=== PATIENT | male | born 1955 | race Caucasian/White ===

== ENCOUNTER 2016-08-27 14:45 | Inpatient (IN) | payer OTHER ==
[~2016-08-27] VITALS: Ht 177.8 cm; Wt 110.3 kg
--- NOTE | ~2016-08-27 | ST ---
[place], [place] EXERCISE STRESS TEST REPORT NAME: ROSALINDA CRAWFORD UNIT #: [id number] ROOM: 531 DOCTOR: SHIVA TOSCANO MD BIRTHDATE: [birth year] DOS: 08/28/2016 INDICATIONS: History of coronary artery disease, precordial chest pain. PROCEDURE: The patient walked on a Luis protocol treadmill test for 3 minutes and 30 seconds at which point he stepped off the treadmill. The exercise test was terminated, and the patient was allowed to sit. He was then given 0.4 mg regadenoson intravenously followed by a saline flush. The resting electrocardiogram showed sinus rhythm with poor precordial R-wave progression and possible left ventricular hypertrophy. He did have ST segment depression in leads 1 and 2. During the infusion, he had a normal tachycardic heart rate response. His resting heart rate of 103 aubree to 113. The resting blood pressure of 144/86 aubree to 154/80. He had mild dyspnea with regadenoson but no other significant symptoms. Isotope was administered after the infusion of regadenoson. IMPRESSION: 1. Well tolerated infusion of regadenoson. 2. Radionuclide was administered. Please see the separate imaging report for further details of the patient's stress test results. SHIVA TOSCANO MD CM:STRESS:EXERCISE STRESS TEST REPORT [id number] SHIVA TOSCANO MD
--- NOTE | ~2016-08-27 | CON ---
[place], [place] REPORT OF CONSULTATION NAME: ROSALINDA CRAWFORD UNIT #: [id number] ROOM: 531 DOCTOR: SHIVA TOSCANO MD BIRTHDATE: [birth year] DOS: 08/28/2016 CARDIOLOGY CONSULTATION REASON FOR CONSULTATION: Chest pain. HISTORY OF PRESENT ILLNESS: The patient is a 61-year-old man who has a history of hypertension, hyperlipidemia, diabetes mellitus, and coronary artery disease. He tells me that he had a 3-vessel bypass at the [facility] in 2002. He tells me he also had a carotid endarterectomy that same year. As best I can tell, he has not had very close cardiac followup since then, but recently was seen by Dr. Yoon in [place]. The patient states that Dr. Yoon requested that he undergo echocardiography. The procedure was done in [place] on 08/27/2016. As the patient was driving home from the echo, he developed a left anterior chest pain. It did not radiate. It lasted about 5-10 minutes. He stated that in retrospect, he had been having intermittent chest pains for the last week. He became concerned and therefore presented to the Emergency Room at [facility]. His initial electrocardiogram showed sinus rhythm with poor precordial R-wave progression and possible left ventricular hypertrophy. He also had ST segment depression in leads 1 and 2. He was hospitalized for further assessment. Since admission, troponin levels have been measurable, but not elevated. The highest measured troponin level was 0.034. He did not have any further EKG changes. PAST HISTORY: Includes, 1. History of coronary artery disease, status post 3-vessel bypass surgery at the [facility] in 2002, the records are not currently available. 2. Carotid vascular disease, status post left carotid endarterectomy, 2002. 3. No previous history of myocardial infarction or stroke. 4. History of essential hypertension. 5. History of hyperlipidemia. 6. Type 2 diabetes mellitus with peripheral neuropathy. 7. History of right cataract resection. MEDICATIONS: Prior to admission, insulin by sliding scale q.i.d., aspirin 81 mg per day, fenofibrate 145 mg daily, gabapentin 300 mg t.i.d., glimepiride 4 mg b.i.d., lisinopril 40 mg daily, metformin 1000 mg b.i.d., metoprolol succinate 50 mg daily and pravastatin 80 mg daily. ALLERGIES: The patient has no known drug allergies. FAMILY HISTORY: Unknown. The patient was adopted. REVIEW OF SYSTEMS: The patient denies diplopia or loss of vision. He denies lightheadedness or syncope. He did have some pressure in his chest with the pain, but denied nausea or diaphoresis. He denied fevers or chills. He denied any recent weight change. He denies any change in his appetite. He has not had hemoptysis or hematemesis. He denies any recent weight loss, fevers or chills. He denies any heat or cold intolerance. He denies polyuria or polydipsia. He denies blood in his stools or bladder and denies any change in bowel or bladder [place], [place] REPORT OF CONSULTATION NAME: ROSALINDA CRAWFORD UNIT #: [id number] ROOM: 531 DOCTOR: SHIVA TOSCANO MD BIRTHDATE: [birth year] habits. He denies any skin rashes. He denies any swelling in his legs. The remainder of the review of systems is negative except as noted above. SOCIAL HISTORY: The patient smokes an occasional cigar. He does not drink alcohol or use illicit drugs. PHYSICAL EXAMINATION: GENERAL: The patient is an overweight white male who is awake, alert and oriented. VITAL SIGNS: Pulse is 100 and regular, blood pressure is 146/90. He is afebrile. He weighs 110.3 kg and has a body mass index of 34.9. HEENT: Normocephalic, atraumatic. Extraocular muscles are intact. Sclerae are clear. Pupils are equal, round and react to light. The oral mucosa is moist. Tongue is midline. NECK: Supple. He has no jugular distention or hepatojugular reflux. Carotids are full and I heard no bruits. He had no neck or supraclavicular masses. He does have a well-healed left carotid endarterectomy scar. LUNGS: Respirations are unlabored. His chest is clear to auscultation and percussion. He had no presacral edema or chest wall tenderness. HEART: Had a regular rhythm. He had a fourth heart sound, but no third heart sound or murmur. The PMI was not displaced. There was no precordial heave, lift or thrill. ABDOMEN: Soft and normally active without masses, organomegaly or bruits. EXTREMITIES: Showed no edema. Peripheral pulses were intact in the feet bilaterally. LABORATORY DATA: I reviewed his electrocardiogram. It did show sinus rhythm with poor precordial R-wave progression and probable left ventricular hypertrophy. There was mild ST segment depression in leads 1 and 2. Occasional PVCs were seen. Serial cardiac biomarkers are as noted above. There is a minimal elevation in troponin, which is measurable but not above the normal level for this hospital. Hemoglobin is 12.5, hematocrit 30.2. There are 3800 white cells and 88,000 platelets present. INR is 1.2. Sodium is 138, potassium 3.8, chloride 103, CO2 24, BUN 9, creatinine 0.65. Sugar on admission was 200 with hemoglobin A1c of 8.6. Please note, an echocardiogram was available from 12/24/2014. It showed normal left ventricular size with mild concentric left ventricular hypertrophy. There was stage 1 left ventricular diastolic relaxation abnormalities and normal left ventricular systolic function. The patient had moderate aortic stenosis with an estimated valve area of 1.4 cm2 and a mean transvalvular gradient of 14 mmHg. IMPRESSIONS: 1. Admission with chest pain. The patient does not show any signs of an acute myocardial infarction, although his measurable troponin levels are somewhat suspicious for early myocardial injury. 2. History of coronary artery disease status post reported 3-vessel bypass at the [facility] in [place] in 2002. [place], [place] REPORT OF CONSULTATION NAME: ROSALINDA CRAWFORD UNIT #: [id number] ROOM: 531 DOCTOR: SHIVA TOSCANO MD BIRTHDATE: [birth year] 3. History of carotid vascular disease, status post left carotid endarterectomy. 4. Moderate aortic stenosis. 5. History of hypertension. 6. History of hyperlipidemia. 7. History of diabetes with peripheral neuropathy, but no nephropathy present. PLAN: We will assess his coronary perfusion with an exercise myocardial perfusion study. An echocardiogram was reportedly done yesterday at the [facility] and we will request those records rather than repeating the study today. I thank the hospitalist group for asking our advice regarding his management. SHIVA TOSCANO MD CM:CONSTR:REPORT OF CONSULTATION 1029 08/29/16 0116 interface
[~2016-08-27 14:45] MED LIST: VICODIN ES 7501 TAB PO
[2016-08-27 14:52] VITALS: BP 180/91
[2016-08-27 15:29] LABS: BASO # 0.1 10*3/uL (0.0-0.1); BASO % 1.1 % (0.0-1.0); EOS # 0.1 10*3/uL (0.0-0.4); EOS % 1.5 % (1.0-4.0); HEMATOCRIT 39.8 % (42.0-52.0); LYMPH # 0.7 10*3/uL (1.3-4.4); LYMPH % 12.2 % (27.0-41.0); MEAN CELL VOLUME 87.1 fl (80.0-94.0); MEAN CORPUSCULAR HGB 28.4 pg (27.0-31.0); MEAN CORPUSCULAR HGB CONC 32.7 g/dl (33.0-37.0); MEAN PLATELET VOLUME 11.1 fl (9.6-12.3); MONO # 0.5 10*3/uL (0.1-1.0); PLATELET COUNT AUTOMATED 82 10*3/uL (130-400); RED BLOOD COUNT 4.57 10*6/uL (4.50-5.90); RED CELL DISTRI WIDTH 14.2 % (0-14.5); WHITE BLOOD COUNT 5.3 10*3/uL (4.8-10.8)
[2016-08-27 15:47] LABS: BUN 9 mg/dl (7-24); CARBON DIOXIDE 23 mmol/L (21-32); CHLORIDE 99 mmol/L (98-107); EST GLOM FILT AFRICAN AMERICAN > 60 ml/min; GLUCOSE 315 mg/dL (65-99); SODIUM 133 mmol/L (136-145); TROPONIN I 0.034 ng/ml (<0.5)
[2016-08-27 16:49] VITALS: BP 145/88
[2016-08-27] MEDS ORDERED: ASPIRIN81 M1 PO (16:52)
[2016-08-27] MEDS ORDERED: LISINOPRIL40 MG PO (16:52)
[2016-08-27] MEDS ORDERED: NEURONTIN300 MG PO (16:52)
[2016-08-27] MEDS ORDERED: AMARYL4 MG PO (16:52)
[2016-08-27] MEDS ORDERED: PRAVASTATIN SOD80 MG PO (16:52)
[2016-08-27] MEDS ORDERED: METOPROLOL SUCC50 M1 PO (16:53)
[2016-08-27] MEDS ORDERED: SIMVASTATIN40 MG PO (16:53)
[2016-08-27] MEDS ORDERED: NOVOLOG10 ML IV (16:53)
[2016-08-27] MEDS ORDERED: FENOFIBRATE145 M1 PO (16:54)
[2016-08-27 17:25] VITALS: BP 127/69
[2016-08-27 17:36] LABS: INTERNATIONAL NORM RATIO 1.1 (2.0-3.5)
[2016-08-27 18:27] LABS: TROPONIN I 0.033 ng/ml (<0.5)
[2016-08-27 18:31] VITALS: BP 147/83
[2016-08-27] MEDS ORDERED: METFORMIN1000 MG PO (18:48)
[2016-08-27 20:00] VITALS: BP 158/74
[2016-08-27 20:57] LABS: BILIRUBIN NEGATIVE (NEGATIVE); BLOOD NEGATIVE (NEGATIVE); CLARITY CLEAR (CLEAR); COLOR YELLOW (YELLOW); GLUCOSE 1+ (NEGATIVE); KETONE NEGATIVE (NEGATIVE); LEUKO ESTERASE NEGATIVE (NEGATIVE); NITRITE NEGATIVE (NEGATIVE); PROTEIN NEGATIVE (NEGATIVE)
[2016-08-27 21:06] LABS: URINE REFLEX COMMENT NO (NO)
[2016-08-28] VITALS: BP 133/77
[2016-08-28 00:46] LABS: CKMB 1.9 ng/ml (0.5-3.6); TROPONIN I 0.032 ng/ml (<0.5)
[2016-08-28 06:11] LABS: BASO % 1.1 % (0.0-1.0); EOS # 0.1 10*3/uL (0.0-0.4); EOS % 2.7 % (1.0-4.0); HEMATOCRIT 38.2 % (42.0-52.0); HEMOGLOBIN 12.5 g/dl (14.0-18.0); LYMPH # 0.7 10*3/uL (1.3-4.4); LYMPH % 18.8 % (27.0-41.0); MEAN CELL VOLUME 86.8 fl (80.0-94.0); MEAN CORPUSCULAR HGB 28.4 pg (27.0-31.0); MEAN CORPUSCULAR HGB CONC 32.7 g/dl (33.0-37.0); MEAN PLATELET VOLUME 11.5 fl (9.6-12.3); MONO # 0.5 10*3/uL (0.1-1.0); MONO % 13.5 % (3.0-9.0); NEUT # 2.4 10*3/uL (2.3-7.9); NEUT % 63.6 % (47.0-73.0); PLATELET COUNT AUTOMATED 88 10*3/uL (130-400); WHITE BLOOD COUNT 3.8 10*3/uL (4.8-10.8)
[2016-08-28 06:26] LABS: ALBUMIN 3.3 gm/dl (3.1-4.5); ALKALINE PHOSPHATASE 124 U/L (45-117); BILIRUBIN, TOTAL 1.3 mg/dl (0.2-1.0); BUN 9 mg/dl (7-24); CARBON DIOXIDE 24 mmol/L (21-32); CHLORIDE 103 mmol/L (98-107); CHOLESTEROL 147 mg/dL (<200); EST GLOM FILT AFRICAN AMERICAN > 60 ml/min; FREE T4 1.22 ng/dl (0.76-1.46); GLUCOSE 246 mg/dL (65-99); HDL CHOLESTEROL 16 mg/dl (40-60); LDL CHOLESTEROL 85 mg/dL (9-159); MAGNESIUM 1.3 mg/dL (1.5-2.1); POTASSIUM 3.8 mmol/L (3.5-5.1); SGOT/AST 24 IU/L (3-35); SGPT/ALT 17 U/L (12-78); SODIUM 138 mmol/L (136-145); TOTAL PROTEIN 7.5 gm/dL (6.4-8.2); TRIGLYCERIDES 230 mg/dl (<150); VLDL CHOLESTEROL 46 mg/dL (6-40)
[2016-08-28 06:28] LABS: HEMOGLOBIN A1c 8.6 % (4.8-5.6)
[2016-08-28 06:36] LABS: CKMB 2.2 ng/ml (0.5-3.6); TROPONIN I 0.027 ng/ml (<0.5)
[2016-08-28 07:05] LABS: FOLIC ACID 9.55 ng/mL (>5.38)
[2016-08-28 07:27] LABS: INTERNATIONAL NORM RATIO 1.2 (2.0-3.5); PROTHROMBIN TIME 12.7 SECONDS (9.0-12.4)
[2016-08-28 08:00] VITALS: BP 146/90
[2016-08-28 12:00] VITALS: BP 136/86
[2016-08-28 16:00] VITALS: BP 124/89; BP 136/86
[2016-08-28 20:00] VITALS: BP 139/86
[2016-08-29] VITALS: BP 140/60
[2016-10-01] MEDS ORDERED: NOVOLIN R100 U/ML SC (10:48)
[2016-10-01] MEDS ORDERED: ISOSORBIDE MONO30 MG PO (10:50)
[2016-10-01] MEDS ORDERED: RANEXA500 M1 PO (10:50)
== END 2016-08-29 05:30 | disposition short-term general hospital (02) | DRG 303 ==
LOC: ED 14:45 → 5E 16:55 → EDHOLD 16:55 → 5E 17:55
PROVIDERS: Emergency Medicine; Hospitalist
DX: I25.119 Atherosclerotic heart disease of native coronary artery with unspecified angina pectoris (principal); D69.6 Thrombocytopenia, unspecified; E11.42 Type 2 diabetes mellitus with diabetic polyneuropathy; E44.0 Moderate protein-calorie malnutrition; E87.1 Hypo-osmolality and hyponatremia; E11.65 Type 2 diabetes mellitus with hyperglycemia; I35.0 Nonrheumatic aortic (valve) stenosis; D64.9 Anemia, unspecified; E78.5 Hyperlipidemia, unspecified; I10 Essential (primary) hypertension; F17.210 Nicotine dependence, cigarettes, uncomplicated; E78.00 Pure hypercholesterolemia, unspecified; E83.42 Hypomagnesemia; Z95.1 Presence of aortocoronary bypass graft; Z79.82 Long term (current) use of aspirin; Z79.84 Long term (current) use of oral hypoglycemic drugs; Z79.899 Other long term (current) drug therapy; Z68.34 Body mass index [BMI] 34.0-34.9, adult

== ENCOUNTER 2016-11-02 09:31 | Inpatient (IN) | payer OTHER ==
[~2016-11-02] VITALS: Ht 180.3 cm; Wt 109.9 kg
--- NOTE | ~2016-11-02 | PR ---
[place], [place] PROGRESS NOTE NAME: ROSALINDA CRAWFORD UNIT #: [id number] ROOM: 502 DOCTOR: SOURAV CORADO MD BIRTHDATE: [birth year] DOS: 11/08/2016 NEPHROLOGY FOLLOWUP NOTE SUBJECTIVE: The patient was seen and examined. He is sitting in a chair. He states he did not sleep all night because his belly is very uncomfortable. He denies shortness of breath. He is very poor historian. He did not state that he was in any distress. He tells me he is urinating adequately. PHYSICAL EXAMINATION: VITAL SIGNS: Revealed temperature 97, pulse 89, respirations 18, blood pressure 95/59. HEENT: He has dry mucous membranes. LUNGS: Diminished breath sounds. No wheeze. HEART: Normal S1, S2. ABDOMEN: Moderately distended, nontender. EXTREMITIES: Had 1+ edema. SKIN: Mildly jaundiced. LABORATORY DATA: Hemoglobin 8.6, white count of 15,000, platelets 158. BUN 70, creatinine 2.7, glucose 341. Sodium 139, potassium 5.9, carbon dioxide 25, albumin of 2.1, ammonia 53. ASSESSMENT AND PLAN: 1. Acute on apparent chronic kidney disease. His baseline creatinine is not clear, although it seems he recently had creatinine levels fairly stable in the range of 2. His creatinine is slightly higher than previous readings. The etiology of his acute kidney injury is not quite clear. Hepatorenal syndrome is of concern. Continue to follow labs very closely. Dose medication for current creatinine clearance. Fluids have been started by the primary service. 2. Hyperkalemia. This seems to be an ongoing issue. The etiology seems multifactorial. We would avoid using Kayexalate if possible in view of his mildly elevated lactic acid level. The patient's blood glucose levels seemed to be uncontrolled and hyperglycemia may be contributing to his elevated potassium levels as well. 3. Cirrhosis. Etiology is not quite clear. He seems to have distended abdomen with questionable ascites. Consideration for paracentesis, although I would recommend avoiding large volume paracentesis. Continue ongoing supportive care. [place], [place] PROGRESS NOTE NAME: ROSALINDA CRAWFORD UNIT #: [id number] ROOM: 502 DOCTOR: SOURAV CORADO MD BIRTHDATE: [birth year] SOURAV CORADO MD CM:PNTRANS [id number] SOURAV CORADO MD 11/08/16 1601 interface
--- NOTE | ~2016-11-02 | PR ---
[place], [place] PROGRESS NOTE NAME: [id number] UNIT #: [id number] ROOM: 502 DOCTOR: SHIVA TOSCANO MD BIRTHDATE: [birth year] DOS: 11/07/2016 CARDIOLOGY PROGRESS NOTE SUBJECTIVE: The patient was seen at his bedside today on November 07, 2016, with his in attendance. He apparently had a severe hypoglycemic episode this morning requiring intravenous D50 for correction. Even now, he seems confused and lethargic, even though his sugar is now 125 by fingerstick. He denies any symptoms, but his words are slurred. He specifically denies chest pain or dyspnea. He has not had any further paracentesis since I saw him yesterday. PHYSICAL EXAMINATION: VITAL SIGNS: Today, his pulse is 95 and regular, blood pressure is 132/80. He is afebrile. He weighs 109.9 kilograms with a body mass index of 33.8. NECK: Supple. He has no jugular distention. Carotids are full. LUNGS: Respirations are unlabored. His chest is clear to auscultation and percussion. HEART: Has a regular rhythm with a fourth heart sound, but no third heart sound or significant murmur. ABDOMEN: Distended. EXTREMITIES: Showed 2+ edema bilaterally. Pedal pulses are diminished bilaterally. LABORATORY DATA: His hemoglobin is 10.6, white count is elevated at 22,100, platelet count 226,000. Sodium is 142, potassium 5.3, BUN 25, creatinine 2.21. BUN and creatinine are gradually rising. He is not currently on any diuretics, but he is on lactulose for his recently documented cirrhosis. Ammonia level yesterday was high at 42 with normal being less than 32. IMPRESSION: 1. Presentation with sinusitis and bronchitis. Symptoms appear to be improving. 2. Mild elevation in troponin on admission indicating limited myocardial injury. 3. Recent catheterization on August 29, 2016, indicated the patient should be treated medically. He had a chronic total occlusion of the right coronary artery with occlusion of the graft to the right coronary artery. His left system is well perfused via 2 graft. He is not a good candidate for percutaneous intervention. 4. Type 2 diabetes mellitus. 5. Essential hypertension. 6. Hyperlipidemia. 7. Cirrhosis and ascites, etiology not known. Evaluation and management are in progress. PLAN: At this point, there is nothing more for us to offer from a cardiac standpoint. We will remain available to see him as needed, but for now, we will sign off. Please let us know if we can be of any further assistance. [place], [place] PROGRESS NOTE NAME: ROSALINDA CRAWFORD UNIT #: [id number] ROOM: 502 DOCTOR: SHIVA TOSCANO MD BIRTHDATE: [birth year] I thank the hospitalist group for asking our advice regarding his care. SHIVA TOSCANO MD CM:PNTRANS [id number] SHIVA TOSCANO MD 11/08/16 012 interface
--- NOTE | ~2016-11-02 | PR ---
[place], [place] PROGRESS NOTE NAME: ROSALINDA CRAWFORD [id number] UNIT #: [id number] ROOM: 502 DOCTOR: SHIVA TOSCANO MD BIRTHDATE: [birth year] DOS: 11/05/2016 Cardiology Progress Note SUBJECTIVE: The patient was seen at his bedside today, 11/05/2016. He was lying almost flat when I entered the room, he was asleep but aroused easily. He continues to have some dyspnea. He did have a paracentesis on 11/05/2016 which only yielded 120 mL of fluid. Attempts will be made to remove more in the future. He denies any chest pain, but still is dyspneic with modest exertion. PHYSICAL EXAMINATION: GENERAL: He is an overweight white male who is awake, alert and oriented. VITAL SIGNS: Pulse is 96 and regular, blood pressure 113/60, he is afebrile and weighs 109.9 kilograms. NECK: Supple. He has no jugular distention or hepatojugular reflux. Carotids are full. LUNGS: Respirations are unlabored. He has expiratory prolongation, but no rales. HEART: Has a regular rhythm with a fourth heart sound, but no third heart sound. There is grade 2/6 holosystolic murmur at the apex and a grade 2/6 systolic ejection murmur along the left sternal border radiating toward the base. ABDOMEN: Obese without masses, organomegaly or bruits. EXTREMITIES: Showed 3+ pitting edema to knees. Pedal pulses were absent. He did have an echocardiogram on 11/03/2016. This showed normal size left ventricle. The inferior wall and distal inferior septum were hypokinetic, but the other ramirez thickened normally. The ejection fraction was between 40 and 45% with stage III diastolic relaxation abnormalities. Right ventricular size and function were normal. The left atrium was severely dilated. The mitral valve leaflet excursion was decreased consistent with a low flow state. There was mild mitral insufficiency, but no stenosis. There was also mild tricuspid insufficiency with mildly elevated right ventricular systolic pressures. LABORATORY DATA: Hemoglobin is 10.3 with hematocrit 33.4. There are 14,000 white cells and 216,000 platelets. Sodium is 139, potassium 6.0, chloride 107, BUN 49, creatinine 2.08. Troponin levels were mildly elevated on this admission with a peak of 1.080, the levels are subsequently falling. IMPRESSION: 1. Signs and symptoms of bronchitis and sinusitis. 2. Mild elevation in troponin, indicating a limited myocardial injury. 3. Cardiac catheterization 08/29/2016 demonstrating occlusion of the left anterior descending with good filling by a patent saphenous vein graft. The right coronary artery was occluded with an occluded graft and limited collateral flow to the right coronary artery. This is certainly a source for ischemia and could be an infarct-related vessel. Unfortunately, there is nothing we can do to improve the circulation in the right coronary artery that is reasonable. 4. Type 2 diabetes mellitus. 5. Essential hypertension. [place], [place] PROGRESS NOTE NAME: ROSALINDA CRAWFORD UNIT #: [id number] ROOM: [facility] DOCTOR: SHIVA TOSCANO MD BIRTHDATE: [birth year] 6. Hyperlipidemia. 7. Cirrhosis with ascites. Evaluation in progress. PLAN: We will continue to treat him medically. We appreciate the assistance of the supervisor display fabrication for helping us with his fluid balance. I thank the hospitalist for asking our advice regarding his care. SHIVA TOSCANO MD CM:PNTRANS 18 8 SHIVA TOSCANO MD 11/06/16608 interface
--- NOTE | ~2016-11-02 | CON ---
[place], [place] REPORT OF CONSULTATION [id number] UNIT #: [id number] ROOM: [facility] DOCTOR: SHIVA TOSCANO MD BIRTHDATE: [birth year] DOS: 11/03/2016 CARDIOLOGY CONSULTATION REASON FOR CONSULTATION: Elevated troponin level. HISTORY OF PRESENT ILLNESS: This patient is a 61-year-old man who does have a history of atherosclerotic heart disease. He had a 3-vessel bypass at the [facility] around 2002 followed by a left carotid endarterectomy. I saw him when he presented to the hospital in August 2016 with chest pain. He ruled out for a myocardial infarction. His stress test did show ischemia in the inferolateral wall with an inferoseptal infarction and the ejection fraction of 42%. The patient was transferred to the [facility] where he did undergo cardiac catheterization by Dr. Antwan Menjivar. Procedure was done on 08/29/2016. Left main was patent. LAD had a 100% proximal stenosis. The saphenous vein graft to the diagonal was patent with retrograde filling of the LAD and good distal runoff. The circumflex was patent. Saphenous vein graft to the obtuse marginal was patent. The right coronary artery was dominant and occluded with left to right collaterals to the PDA which resulted in poor filling. A saphenous vein graft to the PDA was occluded was felt that the patient should be treated medically. The patient did well until recently. He began having more of a cough and episodes of dyspnea. He denied any recurrent chest pain. He presented to the Emergency Room last evening with worsening cough and sputum production. He denied any associated fevers, chills, vomiting, nausea or chest pain. A chest x-ray was unremarkable. A CT scan of the abdomen showed a nodular hepatic contour consistent with cirrhosis. The patient had moderate ascites. Cardiac biomarkers were obtained. CK was normal at 55 with an MB of 4.4. The troponin, however, was mildly elevated at 0.116. Upon repeat it was 0.657. He was therefore moved to the intensive care unit and we were asked to comment on this. Currently, the patient has some mild dyspnea, but denies chest pain, nausea, vomiting or diaphoresis. PAST MEDICAL HISTORY: 1. Coronary artery disease, status post 3-vessel bypass at the [facility] in 2002, records are not currently available; however, a recent catheterization indicated that he did have 3 saphenous vein grafts to the diagonal branch of the LAD, obtuse marginal branch of the circumflex, and posterior descending branch of the right coronary artery. 2. Carotid vascular disease, status post left carotid endarterectomy 2002. 3. No previously documented history of myocardial infarction or stroke. 4. Essential hypertension. 5. Hyperlipidemia. 6. Type 2 diabetes mellitus with peripheral neuropathy. 7. Status post right cataract resection. 8. Cardiac catheterization at [facility], Dr. Antwan Menjivar, 08/29/2016, normal left main, occluded proximal LAD with patent saphenous vein graft to the diagonal that results in LAD filling, patent circumflex with patent [place], [place] REPORT OF CONSULTATION NAME: ROSALINDA CRAWFORD UNIT #: [id number] ROOM: [facility] DOCTOR: SHIVA TOSCANO MD BIRTHDATE: [birth year] graft to the obtuse marginal branch, occluded right coronary artery with occluded graft to the posterior descending coronary artery. Medical therapy. 9. Hospitalization with symptoms of sinusitis and bronchitis on 11/02/2016. The patient incidentally noted to have a mild elevation in troponin without any symptoms of cardiac decompensation. MEDICATIONS: Prior to admission, gabapentin 300 mg t.i.d., glimepiride 4 mg b.i.d., isosorbide mononitrate 30 mg daily, lisinopril 40 mg daily, metformin 1000 mg b.i.d., metoprolol 50 mg b.i.d., pravastatin 80 mg daily, ranitidine 150 mg b.i.d., insulin (NovoLog mix 70/30) 65 units twice a day, ranolazine 500 mg b.i.d. ALLERGIES: The patient has no known drug allergies. FAMILY HISTORY: Unknown as the patient is adopted. REVIEW OF SYSTEMS: The patient denies diplopia or loss of vision. Denies syncope or lightheadedness. He has had dyspnea and minimally productive cough. He denies fevers, chills, sweats or recent weight change. He denies nausea or vomiting. He denies orthopnea or PND. He does have episodic dyspnea. He denies hemoptysis or hematemesis. He denies vomiting or diarrhea. He denies any change in bowel or bladder habits and denies bleeding from urine or bowels. He does note chronic peripheral edema and abdominal swelling. He denies any skin rashes. He denies heat or cold intolerance. The remainder of the review of systems is negative except as noted above. SOCIAL HISTORY: The patient is and lives with his . He does not smoke or consume significant amounts of alcohol. PHYSICAL EXAMINATION: GENERAL: The patient is an overweight white male who is awake, alert and oriented. VITAL SIGNS: Pulse is 95 and regular; blood pressure is 145/89. He is afebrile. He weighs 109.9 kilograms with a body mass index of 33.8. HEENT: Normocephalic, atraumatic. Extraocular muscles are intact. Sclerae are clear. Pupils are equal, round and reactive to light. Oral mucosa is moist. Tongue is midline. NECK: Supple. He has no jugular distention or hepatojugular reflux. Carotids are full. He has a well-healed left carotid endarterectomy scar. There are soft bilateral bruits present. LUNGS: Respirations are unlabored. He has expiratory prolongation. I did not hear any rales. He has no presacral edema or chest wall tenderness. CARDIOVASCULAR: His heart has a regular rhythm. He has fourth heart sound, but no third heart sound. He has a grade 2/6 holosystolic murmur at the apex and a grade 2/6 systolic ejection murmur along the left sternal border radiating toward the base. No diastolic murmurs are present. PMI is not displaced. There is no precordial heave, lift or thrill. ABDOMEN: Obese, but otherwise benign, without masses, organomegaly or bruits. There is no obvious fluid wave. EXTREMITIES: Showed 3+ edema into the knees. Pedal pulses were absent [place], [place] REPORT OF CONSULTATION NAME: ROSALINDA CRAWFORD UNIT #: [id number] ROOM: [facility] DOCTOR: SHIVA TOSCANO MD BIRTHDATE: [birth year] bilaterally. LABORATORY DATA: I reviewed his electrocardiogram; it shows sinus rhythm with poor precordial R-wave progression, nonspecific ST and T-wave changes. IMPRESSIONS: 1. Hospitalization with signs and symptoms of bronchitis and sinusitis. 2. Mild elevation in troponin, indicating a limited myocardial injury. 3. Cardiac catheterization 08/29/2016 demonstrating occlusion of the left anterior descending with good filling by patent saphenous vein grafts. The right coronary artery; however, is also occluded with an occluded graft. Collateral flow to the right coronary artery is limited. 4. Type 2 diabetes mellitus on insulin. 5. History of essential hypertension. 6. History of hyperlipidemia. PLAN: The patient's recent catheterization shows that his coronary disease is best treated medically. We will increase his beta blockers to control his heart rate and keep him on aspirin, ranolazine and HARVEY inhibitors. I will add clopidogrel to his regimen as well, for the present time he will be treated with Lovenox. He will be ambulated in the next few days. If he shows no other signs of acute myocardial ischemia we probably will not perform any further cardiac workup on this admission, but continue to treat him medically as noted. We thank the hospitalist physicians for asking our advice regarding his management. SHIVA TOSCANO MD CM:CONSTR:REPORT OF CONSULTATION 1007 11/03/16 1147 interface
--- NOTE | ~2016-11-02 | PR ---
[place], [place] PROGRESS NOTE NAME: ROSALINDA CRAWFORD UNIT #: [id number] ROOM: 502 DOCTOR: SHIVA TOSCANO MD BIRTHDATE: [birth year] DOS: 11/06/2016 CARDIOLOGY PROGRESS NOTE SUBJECTIVE: The patient was seen at his bedside today, 11/06/2016 with his in attendance. He tells me he is feeling better and that his feet feel like they are no longer swollen. He has been walking around the nursing station and states that his stamina is gradually improving as well. He tells me that there are plans to do further paracentesis later today. PHYSICAL EXAMINATION: VITAL SIGNS: Today, his pulse is 95 and regular, blood pressure is 122/70. He is afebrile. He weighs 109.9 kilograms with a body mass index of 33.8. NECK: Supple. He has no jugular distention. Carotids are full. LUNGS: Respirations are unlabored. CHEST: Clear. HEART: Has a regular rhythm with a fourth heart sound, but no third heart sound. ABDOMEN: Slightly distended. EXTREMITIES: Showed 2+ edema bilaterally. Pedal pulses are diminished bilaterally. LABORATORY DATA: Recent echocardiogram 10/10/2016 showed normal left ventricular size with inferior and distal inferoseptal hypokinesis. The other ramirez thickened normally with the ejection fraction between 40 and 45%. There was evidence for stage 3 diastolic dysfunction, right ventricular size and function were normal but the left atrium was severely dilated. He had mild mitral insufficiency, but no stenosis. There is also mild tricuspid insufficiency with evidence for mildly elevated right ventricular systolic pressures. IMPRESSION: 1. Bronchitis and sinusitis appear to be improving. 2. Mild elevation in troponin, indicating a limited myocardial injury. 3. Recent catheterization 08/29/2016 indicated that the patient should be treated medically. His only significant stenosis is the right coronary artery and he is not a good candidate for percutaneous intervention. 4. Type 2 diabetes mellitus. 5. Essential hypertension. 6. Hyperlipidemia. 7. Cirrhosis with ascites evaluation and management are in progress. PLAN: We will continue his current cardiac management. No other changes are planned and no further workup is indicated at this time. I thank the hospitalist group for asking our advice regarding his care. [place], [place] PROGRESS NOTE NAME: ROSALINDA CRAWFORD UNIT #: [id number] ROOM: 502 DOCTOR: SHIVA TOSCANO MD BIRTHDATE: [birth year] SHIVA TOSCANO MD CM:PNTRANS [id number] SHIVA TOSCANO MD 11/06/16 2334 interface
--- NOTE | ~2016-11-02 | PR ---
[place], [place] PROGRESS NOTE NAME: ROSALINDA CRAWFORD [facility] #: [id number] UNIT #: [id number] ROOM: 502 DOCTOR: SHIVA TOSCANO MD BIRTHDATE: [birth year] DOS: 11/04/2016 CARDIOLOGY PROGRESS NOTE SUBJECTIVE: The patient was seen at his bedside in the intensive care unit today on 10/27/2016 for followup of an upper respiratory infection and elevated troponin. The cardiac biomarkers were consistent with a small myocardial infarction, but the patient has had no chest pain and seems to be tolerating it well. We have been adjusting his cardiac medications as he continues to deny any chest pain. His breathing has improved. PHYSICAL EXAMINATION: VITAL SIGNS: Today, his pulse is 88 and regular, blood pressure is 121/75. He is afebrile. NECK: Supple. He has no jugular distention. Carotids are full without bruits. LUNGS: Respirations are unlabored. His chest does have decreased breath sounds at the bases with expiratory prolongation, but no wheezes or rales. HEART: Has a regular rhythm. He has a grade 3/6 systolic ejection murmur along the left sternal border. He does have a well preserved second heart sound. No diastolic murmurs are present. ABDOMEN: Obese, but otherwise benign. EXTREMITIES: Showed no edema. LABORATORY DATA: I reviewed his echocardiogram yesterday. The left ventricular size is normal with inferior and distal inferoseptal hypokinesis. Other ramirez thickened normally. There is moderate concentric left ventricular hypertrophy. Ejection fraction is between 40 and 45% with stage III diastolic dysfunction. His aortic valve shows thickened leaflets with decreased excursion. The estimated valve area was about 1.0 cm with a peak transvalvular gradient of 29 mmHg and a mean of 18. Dimensionless VTI ratio was 0.27. I did look at the report from his recent catheterization and there was no significant gradient across the valve at the time of catheterization. Clinically, he does not have severe aortic stenosis and we will just observe this. LABORATORY DATA: White count is 16,300, hemoglobin 10.9, hematocrit 34.8, sodium is 135, potassium 5.7, BUN 48, creatinine 2.03. IMPRESSION: 1. Coronary artery disease, status post 3-vessel bypass at the [facility] in [place] in 2002. Records not currently available, but a recent catheterization indicates that he had three saphenous vein grafts, one each to a diagonal branch of the LAD, obtuse marginal branch of the circumflex and posterior descending branch of the right coronary artery. The PDA graft is occluded as is the right coronary artery. The vessel fills by faint collaterals. 2. Carotid vascular disease, status post left carotid endarterectomy in 2002. 3. Essential hypertension. 4. Aortic sclerosis. The patient does not have clinical signs of stenosis at [place], [place] PROGRESS NOTE NAME: ROSALINDA CRAWFORD UNIT #: [id number] ROOM: [facility] DOCTOR: SHIVA TOSCANO MD BIRTHDATE: [birth year] this time. 5. Hyperlipidemia. 6. Type 2 diabetes mellitus with peripheral neuropathy. 7. Status post right cataract resection. 8. Cardiac catheterization at by Dr. Antwan Menjivar on 08/29/2016 showed a normal left main, occluded proximal LAD with patent saphenous vein graft to a diagonal that fills the LAD, patent circumflex with patent graft to the obtuse marginal branch, occluded right coronary artery with occluded graft to the posterior descending coronary artery. No gradient noted across the aortic valve. Medical therapy only. PLAN: The patient's abdominal CT did suggest the presence of cirrhosis. This will be evaluated by bottle labeler. He is also to see a high pressure boiler operator for his lung disease. From a cardiac point of view, we will continue medical management for the time being. I will increase his beta blockers as needed to control his rate and keep him on aspirin, ranolazine and HARVEY inhibitors along with clopidogrel. I thank the hospitalist physicians for asking our advice regarding his management. SHIVA TOSCANO MD CM:PNTRANS [id number] SHIVA TOSCANO MD 11/04/16 1547 interface
[~2016-11-02 09:31] MED LIST changes: +AMARYL4 MG PO; +ASPIRIN81 M1 PO; +FENOFIBRATE145 M1 PO; +ISOSORBIDE MONO30 MG PO; +LISINOPRIL40 MG PO; +METFORMIN1000 MG PO; +METOPROLOL SUCC50 M1 PO; +NEURONTIN300 MG PO; +NOVOLIN R100 U/ML SC; +NOVOLOG10 ML IV; +PRAVASTATIN SOD80 MG PO; +RANEXA500 M1 PO; +SIMVASTATIN40 MG PO
[2016-11-02 09:35] VITALS: BP 144/84
[2016-11-02 10:03] LABS: BASO # 0.1 10*3/uL (0.0-0.1); BASO % 0.6 % (0.0-1.0); EOS # 0.3 10*3/uL (0.0-0.4); EOS % 2.4 % (1.0-4.0); HEMATOCRIT 32.4 % (42.0-52.0); HEMOGLOBIN 10.4 g/dl (14.0-18.0); IG # 0.1 10*3/uL (0.0-0.1); LYMPH # 0.6 10*3/uL (1.3-4.4); LYMPH % 5.5 % (27.0-41.0); MEAN CELL VOLUME 87.1 fl (80.0-94.0); MEAN CORPUSCULAR HGB CONC 32.1 g/dl (33.0-37.0); MEAN PLATELET VOLUME 9.8 fl (9.6-12.3); MONO # 0.8 10*3/uL (0.1-1.0); NEUT # 8.6 10*3/uL (2.3-7.9); NEUT % 82.9 % (47.0-73.0); PLATELET COUNT AUTOMATED 187 10*3/uL (130-400); RED BLOOD COUNT 3.72 10*6/uL (4.50-5.90); RED CELL DISTRI WIDTH 15.3 % (0-14.5); WHITE BLOOD COUNT 10.4 10*3/uL (4.8-10.8)
[2016-11-02 10:12] LABS: INTERNATIONAL NORM RATIO 1.2 (2.0-3.5); PROTHROMBIN TIME 13.2 SECONDS (9.0-12.4)
[2016-11-02 10:21] LABS: ALBUMIN 2.2 gm/dl (3.1-4.5); BILIRUBIN, TOTAL 0.7 mg/dl (0.2-1.0); MAGNESIUM 1.9 mg/dL (1.5-2.1); POTASSIUM 5.1 mmol/L (3.5-5.1); TOTAL PROTEIN 8.9 gm/dL (6.4-8.2); TROPONIN I 0.021 ng/ml (<0.045)
[2016-11-02] MEDS ORDERED: RANITIDINE 7575 MG PO (11:59)
[2016-11-02 12:01] LABS: LA>2 REFLEX 2 HR DRAW NOW
[2016-11-02 12:14] LABS: LA>2 RFLX FOLLOW UP AT 2 HRS 3.3 mmol/L (0.4-2.0)
[2016-11-02 13:32] VITALS: BP 144/68
[2016-11-02 14:08] LABS: LA>2 REFLEX 4 HR DRAW NOW
[2016-11-02 14:45] VITALS: BP 121/75
[2016-11-02] MEDS ORDERED: TOPROL XL25 MG PO (15:49)
[2016-11-02] MEDS ORDERED: ZANTAC 150150 MG PO (15:50)
[2016-11-02] MEDS ORDERED: NOVOLOG MI100 UNIT/2 SQ (15:51)
[2016-11-02 18:46] LABS: CKMB 1.5 ng/ml (0.5-3.6); TROPONIN I 0.025 ng/ml (<0.045)
[2016-11-02 20:00] VITALS: BP 164/75
[2016-11-03] VITALS: BP 138/82
[2016-11-03 00:43] LABS: CKMB 2.5 ng/ml (0.5-3.6)
[2016-11-03 00:54] LABS: TROPONIN I 0.116 ng/ml (<0.045)
[2016-11-03 06:25] LABS: HEMATOCRIT 32.6 % (42.0-52.0); HEMOGLOBIN 10.2 g/dl (14.0-18.0); MEAN CELL VOLUME 88.8 fl (80.0-94.0); MEAN CORPUSCULAR HGB 27.8 pg (27.0-31.0); MEAN CORPUSCULAR HGB CONC 31.3 g/dl (33.0-37.0); PLATELET COUNT AUTOMATED 180 10*3/uL (130-400); RED BLOOD COUNT 3.67 10*6/uL (4.50-5.90); RED CELL DISTRI WIDTH 15.3 % (0-14.5); WHITE BLOOD COUNT 7.2 10*3/uL (4.8-10.8)
[2016-11-03 06:40] LABS: CKMB 4.4 ng/ml (0.5-3.6)
[2016-11-03 06:46] LABS: HYPOCHROMIA SLIGHT; LYMPHOCYTE # 0.2 10*3/uL (1.3-4.4); MONOCYTE # 0.1 10*3/uL (0.1-1.0); NEUTROPHIL # 6.8 10*3/uL (2.3-7.9); NEUTROPHILS 95 % (47-73); PLATELET SUFFICIENCY NORMAL (NORMAL); ROULEAUX MODERATE; TOTAL CELLS COUNTED 100 #CELLS
[2016-11-03 06:57] LABS: INTERNATIONAL NORM RATIO 1.3 (2.0-3.5); PROTHROMBIN TIME 14.2 SECONDS (9.0-12.4)
[2016-11-03 06:58] LABS: FREE T4 1.15 ng/dl (0.76-1.46); POTASSIUM 5.3 mmol/L (3.5-5.1)
[2016-11-03 06:59] LABS: TROPONIN I 0.657 ng/ml (<0.045)
[2016-11-03 07:05] LABS: THYROID STIM HORMONE (HS) 0.625 uIU/ml (0.358-4.75)
[2016-11-03 07:20] LABS: HEMOGLOBIN A1c 7.7 % (4.8-5.6)
[2016-11-03 07:39] LABS: FOLIC ACID 5.64 ng/mL (>5.38)
[2016-11-03 08:00] VITALS: BP 144/76
[2016-11-03 08:20] VITALS: BP 145/89
[2016-11-03 12:00] VITALS: BP 131/83
[2016-11-03 12:43] LABS: CKMB 5.7 ng/ml (0.5-3.6); TROPONIN I 1.08 ng/ml (<0.045)
[2016-11-03 18:28] LABS: TROPONIN I 0.973 ng/ml (<0.045)
[2016-11-03 18:59] LABS: CKMB 5.4 ng/ml (0.5-3.6)
[2016-11-03 20:00] VITALS: BP 121/72
[2016-11-04] VITALS: BP 101/57
[2016-11-04 04:00] VITALS: BP 121/75
[2016-11-04 07:06] LABS: HEPATITIS C VIRUS ANTIBODY 0.2 s/co (0.0-0.9)
[2016-11-04 08:00] VITALS: BP 132/89
[2016-11-04 09:24] LABS: HEMATOCRIT 34.8 % (42.0-52.0); HEMOGLOBIN 10.9 g/dl (14.0-18.0); MEAN CORPUSCULAR HGB 27.9 pg (27.0-31.0); MEAN CORPUSCULAR HGB CONC 31.3 g/dl (33.0-37.0); MEAN PLATELET VOLUME 10.3 fl (9.6-12.3); PLATELET COUNT AUTOMATED 227 10*3/uL (130-400); RED BLOOD COUNT 3.91 10*6/uL (4.50-5.90); RED CELL DISTRI WIDTH 15.6 % (0-14.5); WHITE BLOOD COUNT 16.3 10*3/uL (4.8-10.8)
[2016-11-04 09:42] LABS: ALBUMIN 2.4 gm/dl (3.1-4.5); BILIRUBIN, TOTAL 0.5 mg/dl (0.2-1.0); LYMPHOCYTE # 0.2 10*3/uL (1.3-4.4); NEUTROPHIL # 15.2 10*3/uL (2.3-7.9); NEUTROPHILS 93 % (47-73); POTASSIUM 5.7 mmol/L (3.5-5.1); TOTAL CELLS COUNTED 100 #CELLS; TOTAL PROTEIN 8.9 gm/dL (6.4-8.2)
[2016-11-04 09:43] LABS: PLATELET SUFFICIENCY NORMAL (NORMAL); POLYCHROMASIA SLIGHT; ROULEAUX MODERATE
[2016-11-04 12:00] VITALS: BP 107/64
[2016-11-04 16:00] VITALS: BP 114/70
[2016-11-04 20:00] VITALS: BP 113/62
[2016-11-05] VITALS: BP 94/46
[2016-11-05 06:27] LABS: HEMATOCRIT 33.4 % (42.0-52.0); HEMOGLOBIN 10.3 g/dl (14.0-18.0); MEAN CELL VOLUME 90.3 fl (80.0-94.0); MEAN CORPUSCULAR HGB 27.8 pg (27.0-31.0); MEAN CORPUSCULAR HGB CONC 30.8 g/dl (33.0-37.0); MEAN PLATELET VOLUME 10.7 fl (9.6-12.3); PLATELET COUNT AUTOMATED 216 10*3/uL (130-400); RED CELL DISTRI WIDTH 15.7 % (0-14.5)
[2016-11-05 06:33] LABS: POTASSIUM 6.2 mmol/L (3.5-5.1)
[2016-11-05 07:14] LABS: LYMPHOCYTE # 0.1 10*3/uL (1.3-4.4); MONOCYTE # 0.3 10*3/uL (0.1-1.0); NEUTROPHIL # 13.6 10*3/uL (2.3-7.9); NEUTROPHILS 97 % (47-73); PLATELET SUFFICIENCY NORMAL (NORMAL); TOTAL CELLS COUNTED 100 #CELLS
[2016-11-05 08:00] VITALS: BP 130/76
[2016-11-05 12:00] VITALS: BP 114/65
[2016-11-05 15:05] LABS: BODY FLUID RBC 2000 /uL; BODY FLUID WBC 285 /uL
[2016-11-05 15:22] LABS: BODY FLUID ALBUMIN 0.4 g/dL; BODY FLUID AMYLASE 12 U/L; BODY FLUID GLUCOSE 87 mg/dl; BODY FLUID LDH 35 IU/L; BODY FLUID PROTEIN 1.2 g/dl
[2016-11-05 15:57] LABS: BF LYMPHOCYTES 17 %; BF MACROPHAGES 78 %; BF NEUTROPHILS 5 %
[2016-11-05 15:58] LABS: BODY FLUID TYPE PERITONEAL
[2016-11-05 16:00] VITALS: BP 126/66
[2016-11-05 20:00] VITALS: BP 113/60
[2016-11-06] VITALS: BP 117/69
[2016-11-06 06:13] LABS: HEMOGLOBIN 9.9 g/dl (14.0-18.0); MEAN CELL VOLUME 90.9 fl (80.0-94.0); MEAN CORPUSCULAR HGB 27.3 pg (27.0-31.0); MEAN PLATELET VOLUME 10.3 fl (9.6-12.3); PLATELET COUNT AUTOMATED 174 10*3/uL (130-400); RED BLOOD COUNT 3.63 10*6/uL (4.50-5.90); RED CELL DISTRI WIDTH 15.9 % (0-14.5); WHITE BLOOD COUNT 11.8 10*3/uL (4.8-10.8)
[2016-11-06 06:38] LABS: BILIRUBIN NEGATIVE (NEGATIVE); BLOOD 3+ (NEGATIVE); CLARITY CLOUDY (CLEAR); COLOR YELLOW (YELLOW); GLUCOSE NEGATIVE (NEGATIVE); KETONE NEGATIVE (NEGATIVE); LEUKO ESTERASE 2+ (NEGATIVE); NITRITE NEGATIVE (NEGATIVE); PH 5.5 (5.0-9.0); PROTEIN NEGATIVE (NEGATIVE); SPECIFIC GRAVITY 1.015 (1.005-1.030); UROBILINOGEN 0.2 E.U./dl (0.2-1.0)
[2016-11-06 06:45] LABS: POTASSIUM 5.1 mmol/L (3.5-5.1)
[2016-11-06 06:46] LABS: LYMPHOCYTE # 0.4 10*3/uL (1.3-4.4); MONOCYTE # 0.2 10*3/uL (0.1-1.0); NEUTROPHIL # 11.2 10*3/uL (2.3-7.9); NEUTROPHILS 95 % (47-73); TOTAL CELLS COUNTED 100 #CELLS
[2016-11-06 06:47] LABS: PLATELET SUFFICIENCY NORMAL (NORMAL)
[2016-11-06 06:59] LABS: RBC TNTC rbc/hpf (0-2); WBC 51-100 wbc/hpf (0-5)
[2016-11-06 07:00] LABS: BACTERIA 2+; URINE TP/CRE RATIO 0.5 (<0.21)
[2016-11-06 07:01] LABS: YEAST 2+
[2016-11-06 08:00] VITALS: BP 122/70
[2016-11-06 12:00] VITALS: BP 126/79
[2016-11-06 13:39] VITALS: BP 123/64
[2016-11-06 16:00] VITALS: BP 140/79
[2016-11-06 20:00] VITALS: BP 130/70
[2016-11-07] VITALS: BP 108/63
[2016-11-07 06:01] LABS: ALBUMIN 2.2 gm/dl (3.1-4.5); BILIRUBIN, TOTAL 0.5 mg/dl (0.2-1.0); POTASSIUM 5.3 mmol/L (3.5-5.1); TOTAL PROTEIN 7.7 gm/dL (6.4-8.2)
[2016-11-07 06:12] LABS: INTERNATIONAL NORM RATIO 1.2 (2.0-3.5); PROTHROMBIN TIME 12.7 SECONDS (9.0-12.4)
[2016-11-07 06:47] LABS: HEMATOCRIT 34.2 % (42.0-52.0); HEMOGLOBIN 10.6 g/dl (14.0-18.0); MEAN CORPUSCULAR HGB 28.2 pg (27.0-31.0); MEAN PLATELET VOLUME 10.8 fl (9.6-12.3); PLATELET COUNT AUTOMATED 226 10*3/uL (130-400); RED BLOOD COUNT 3.76 10*6/uL (4.50-5.90); RED CELL DISTRI WIDTH 16.2 % (0-14.5); WHITE BLOOD COUNT 22.1 10*3/uL (4.8-10.8)
[2016-11-07 07:29] LABS: LYMPHOCYTE # 0.2 10*3/uL (1.3-4.4); METAMYELOCYTES 1 % (0-0); MONOCYTE # 1.3 10*3/uL (0.1-1.0); NEUTROPHIL # 20.3 10*3/uL (2.3-7.9); NEUTROPHILS 92 % (47-73); PLATELET SUFFICIENCY NORMAL (NORMAL); TARGET CELLS FEW; TOTAL CELLS COUNTED 100 #CELLS
[2016-11-07 07:30] LABS: ROULEAUX SLIGHT
[2016-11-07 08:00] VITALS: BP 132/80
[2016-11-07 09:54] LABS: BILIRUBIN NEGATIVE (NEGATIVE); BLOOD 3+ (NEGATIVE); CLARITY SL CLOUDY (CLEAR); COLOR YELLOW (YELLOW); GLUCOSE NEGATIVE (NEGATIVE); KETONE NEGATIVE (NEGATIVE); LEUKO ESTERASE 3+ (NEGATIVE); NITRITE NEGATIVE (NEGATIVE); PH 5.5 (5.0-9.0); PROTEIN TRACE (NEGATIVE); UROBILINOGEN 0.2 E.U./dl (0.2-1.0)
[2016-11-07 10:03] LABS: BACTERIA 1+; EPITHELIAL CELLS 0-2; RBC TNTC rbc/hpf (0-2); URINE REFLEX COMMENT YES (NO); WBC 41-50 wbc/hpf (0-5)
[2016-11-07 11:05] LABS: TRANSFERRIN 004937 203 mg/dL (200-370)
[2016-11-07 12:00] VITALS: BP 112/79
[2016-11-07 16:00] VITALS: BP 117/71
[2016-11-07 20:00] VITALS: BP 122/76
[2016-11-08] VITALS: BP 107/61
[2016-11-08 06:49] LABS: ALBUMIN 2.1 gm/dl (3.1-4.5); POTASSIUM 5.9 mmol/L (3.5-5.1)
[2016-11-08 06:51] LABS: BILIRUBIN, TOTAL 0.4 mg/dl (0.2-1.0); TOTAL PROTEIN 6.5 gm/dL (6.4-8.2)
[2016-11-08 06:55] LABS: BASO % 0.1 % (0.0-1.0); IG # 0.1 10*3/uL (0.0-0.1); LYMPH # 0.7 10*3/uL (1.3-4.4); LYMPH % 4.5 % (27.0-41.0); MEAN CELL VOLUME 89.9 fl (80.0-94.0); MEAN CORPUSCULAR HGB CONC 31.2 g/dl (33.0-37.0); MEAN PLATELET VOLUME 10.9 fl (9.6-12.3); MONO # 0.8 10*3/uL (0.1-1.0); MONO % 5.1 % (3.0-9.0); NEUT # 13.3 10*3/uL (2.3-7.9); NEUT % 89.6 % (47.0-73.0); RED BLOOD COUNT 3.07 10*6/uL (4.50-5.90); RED CELL DISTRI WIDTH 16.1 % (0-14.5); WHITE BLOOD COUNT 14.9 10*3/uL (4.8-10.8)
[2016-11-08 06:56] LABS: HEMATOCRIT 27.6 % (42.0-52.0); HEMOGLOBIN 8.6 g/dl (14.0-18.0); PLATELET COUNT AUTOMATED 158 10*3/uL (130-400)
[2016-11-08 08:00] VITALS: BP 124/64
[2016-11-08 08:04] LABS: LA>2 REFLEX 2 HR DRAW NOW
[2016-11-08 08:22] LABS: LA>2 RFLX FOLLOW UP AT 2 HRS 2.9 mmol/L (0.4-2.0)
[2016-11-08 10:16] LABS: LA>2 REFLEX 4 HR DRAW NOW
[2016-11-08 12:00] VITALS: BP 95/59
[2016-11-08 16:00] VITALS: BP 94/47
[2016-11-08 17:01] LABS: POTASSIUM 5.8 mmol/L (3.5-5.1)
[2016-11-08 20:00] VITALS: BP 103/53
[2016-11-09] VITALS: BP 92/60
[2016-11-09 06:16] LABS: ALBUMIN 2.1 gm/dl (3.1-4.5); PHOSPHOROUS 6.3 mg/dL (2.5-4.9)
[2016-11-09 06:19] LABS: POTASSIUM 6.4 mmol/L (3.5-5.1)
[2016-11-09 06:25] LABS: HEMATOCRIT 24.6 % (42.0-52.0); HEMOGLOBIN 7.8 g/dl (14.0-18.0); MEAN CELL VOLUME 89.5 fl (80.0-94.0); MEAN CORPUSCULAR HGB 28.4 pg (27.0-31.0); MEAN CORPUSCULAR HGB CONC 31.7 g/dl (33.0-37.0); MEAN PLATELET VOLUME 10.8 fl (9.6-12.3); NUCLEATED RED BLOOD CELL 0.1 10*3/uL (0.0-0.0); NUCLEATED RED BLOOD CELL 0.2 % (0.0-0.0); RED BLOOD COUNT 2.75 10*6/uL (4.50-5.90); RED CELL DISTRI WIDTH 16.1 % (0-14.5); WHITE BLOOD COUNT 24.5 10*3/uL (4.8-10.8)
[2016-11-09 06:28] LABS: PLATELET COUNT AUTOMATED 238 10*3/uL (130-400)
[2016-11-09 06:59] LABS: HYPOCHROMIA MODERATE; MONOCYTE # 0.7 10*3/uL (0.1-1.0); NEUTROPHIL # 22.8 10*3/uL (2.3-7.9); NEUTROPHILS 93 % (47-73); PLATELET SUFFICIENCY NORMAL (NORMAL); POLYCHROMASIA SLIGHT; TOTAL CELLS COUNTED 100 #CELLS
[2016-11-09 08:00] VITALS: BP 112/62
[2016-11-09 09:50] LABS: LA>2 REFLEX 2 HR DRAW NOW
[2016-11-09] MEDS ORDERED: METOPROLOL SUC100 M1 PO (10:18)
[2016-11-09] MEDS ORDERED: FAMOTIDINE20 M1 PO (10:18)
[2016-11-09] MEDS ORDERED: RANEXA500 M1 PO (10:18)
[2016-11-09] MEDS ORDERED: LACTULOSE20 GM/30 M PO (10:18)
[2016-11-09] MEDS ORDERED: HEPARIN SO5000 UNIT/ SC (10:18)
[2016-11-09] MEDS ORDERED: NEURONTIN300 MG PO (10:18)
[2016-11-09] MEDS ORDERED: IMDUR SA60 M1 PO (10:18)
[2016-11-09] MEDS ORDERED: CLOPIDOGREL75 MG PO (10:18)
[2016-11-09] MEDS ORDERED: DUONEB 3 MG/3 ML3 M1 NEB (10:18)
[2016-11-09] MEDS ORDERED: ASPIRIN ADULT L81 M2 PO (10:18)
[2016-11-09] MEDS ORDERED: LEVOFLOXAC500 MG/100 IV (10:25)
[2016-11-09 12:08] LABS: LA>2 REFLEX 4 HR DRAW NOW
[2016-11-12 01:06] LABS: COPPER/CRT RATIO 72 (0-49)
== END 2016-11-09 11:00 | disposition short-term general hospital (02) | DRG 871 ==
LOC: ED 09:31 → EDHOLD 13:44 → ICCU 13:44 → 5E 14:13 → ICCU 11-03 07:25 → 5E 11-04 15:46
PROVIDERS: Internal Medicine; Internal Medicine Hospice and Palliative Medicine; Internal Medicine Nephrology; Registered Nurse; Student in an Organized Health Care Education/Training Program
PROC: 0W9G3ZX Drainage of Peritoneal Cavity, Percutaneous Approach, Diagnostic (ICD-10-PCS; principal; 2016-11-05)
PROC: BW40ZZZ Ultrasonography of Abdomen (ICD-10-PCS; principal; 2016-11-05)
DX: A41.9 Sepsis, unspecified organism (principal); N17.0 Acute kidney failure with tubular necrosis; E44.0 Moderate protein-calorie malnutrition; R18.8 Other ascites; E11.42 Type 2 diabetes mellitus with diabetic polyneuropathy; E87.5 Hyperkalemia; J40 Bronchitis, not specified as acute or chronic; K74.60 Unspecified cirrhosis of liver; D72.810 Lymphocytopenia; I25.10 Atherosclerotic heart disease of native coronary artery without angina pectoris; I70.0 Atherosclerosis of aorta; J32.9 Chronic sinusitis, unspecified; F17.210 Nicotine dependence, cigarettes, uncomplicated; E11.65 Type 2 diabetes mellitus with hyperglycemia; E78.5 Hyperlipidemia, unspecified; I10 Essential (primary) hypertension; E66.09 Other obesity due to excess calories; R33.9 Retention of urine, unspecified; Z95.5 Presence of coronary angioplasty implant and graft; Z79.4 Long term (current) use of insulin; Z79.84 Long term (current) use of oral hypoglycemic drugs; Z79.899 Other long term (current) drug therapy; Z98.41 Cataract extraction status, right eye; Z68.33 Body mass index [BMI] 33.0-33.9, adult